=== PATIENT | male | born 1975 | race African-American/Black ===

== ENCOUNTER 2017-09-30 07:49 | Emergency (ER) | payer BC ==
[2017-09-30] MEDS ORDERED: NA CHLORIDE 0.9% 1,000 ML ONE (08:18)
[2017-09-30] MEDS ORDERED: ONDANSETRON 4 MG/2 ML VIAL ONE (08:18)
[2017-09-30] MEDS ORDERED: KETOROLAC 30 MG/ML INJ ONE (08:18)
[2017-09-30 08:40] LABS: Absolute Lymphocytes (CBC) 2.8 K/uL (0.7-4.9); Absolute Monocytes 0.6 K/uL (0.1-1.3); Absolute Neutrophil 3.3 K/uL (1.8-8.0); Basophils % 0.6 % (0-1.3); Eosinophils % 2.3 % (0-4.4); Hematocrit 42.7 % (39.6-49.0); Lymphocytes % 40.3 % (15.3-44.8); MCH 26.6 pg (27.0-35.0); MCV 78.6 fL (80-100); MPV 7.5 fL (7.6-11.3); Monocytes % 8.8 % (3.3-12.3); RBC Red Blood Cell Count 5.43 M/uL (4.33-5.43)
[2017-09-30 08:43] LABS: Protime INR 1.08
[2017-09-30 09:12] LABS: Albumin 3.4 g/dL (3.4-5.0); Bilirubin Direct 0.1 mg/dL (0-0.2); Bilirubin Total 0.4 mg/dL (0.2-1.0); Magnesium 1.9 mg/dL (1.8-2.4); Potassium 3.9 mmol/L (3.5-5.1); Protein, Total 8.2 g/dL (6.4-8.2)
--- NOTE | 2017-09-30 09:57 | RAD REPORT ---
EXAM DESCRIPTION: RAD - Chest Single View - 09/30/2017 8:51 am CLINICAL HISTORY: Left-sided chest pain COMPARISON: September 28 TECHNIQUE: AP portable chest image was obtained 0835 hours . FINDINGS: Lung volumes are slightly reduced compared to the prior study. No new lung parenchymal pro cess seen. Cardiomegaly is present without vascular engorgement. Lung markings are prominent. Trachea is midline. No measurable pleural effusion and no pneumothorax. No gross bony abnormality seen. No a cute aortic findings suspected. IMPRESSION: Cardiomegaly similar to comparison. No acute vascular engorgement. Lung base markings arm mildly prominent but unchanged. No new or progressive finding.
--- NOTE | 2017-09-30 10:06 | RAD REPORT ---
EXAM DESCRIPTION: CT - Chest For Pe Angio - 09/30/2017 9:55 am CLINICAL HISTORY: Left-sided chest pain, shortness of breath COMPARISON: Chest exam same date, CT chest September 2014 TECHNIQUE: Dynamically enhanced 3 mm thick images of the chest were obtained during administration o f approximately 150mL Isovue 370 IV contrast. Coronal and oblique reconstruction images were generate d and reviewed. Exam utilizes a protocol to evaluate the pulmonary arterial tree. All CT scans are performed using dose optimization technique as appropriate and may include automated exposure control or mA/KV adjustment according to patient size. FINDINGS: No pulmonary emboli are identified. The aorta as imaged shows no acute or suspicious finding. No pericardial thickening or effusion. No focal consolidation or mass. Interstitial markings in the lower lung hernandez are prominent. This co uld be edema or infiltrate. No pleural effusion or pleural thickening. No mediastinal or hilar suspicious masses. No chest wall masses or abnormal axillary lymphadenopathy. IMPRESSION: No pulmonary emboli identified. Suspected interstitial edema or infiltrate in both lower lung hernandez. No focal mass or consolidation.
[2017-09-30] MEDS ORDERED: AZITHROMYCIN 250 MG TAB ONE (10:51)
[2017-09-30] MEDS ORDERED: CEFTRIAXONE/SWI 1gm 1 GM/10 ML SYR ONE (10:51)
[2017-09-30 11:52] LABS: CKMB Creatine Kinase MB 4.3 ng/mL (0.3-3.6)
--- NOTE | 2017-09-30 11:58 | ER ---
Nurse's Notes [facility] Name: Trever Dewitt Age: 42 yrs Sex: Male : 1975 Arrival Date: 09/30/2017 Time: 07:53 Bed 7 Private MD: Vic Aguayo E Diagnosis: Chest pain on breathing;Chest pain, unspecified;Pleurisy;Rhabdomyolysis;Cardiomegaly;Pneumonia due to other specified bacteria Presentation: 09/30 08:04 Presenting complaint: Patient states: Left-sided chest pain, sharp, reproducible with jl7 palpation and deep breaths since yesterday. Transition of care: patient was not received from another setting of care. Onset of symptoms was September 29, 2017. Risk Assessment: Do you want to hurt yourself or someone else? Patient reports no desire to harm self or others. Initial Sepsis Screen: Does the patient meet any 2 criteria? No. Patient's initial sepsis screen is negative. Does the patient have a suspected source of infection? No. Patient's initial sepsis screen is negative. Care prior to arrival: None. 08:04 Method Of Arrival: Ambulatory jl7 08:04 Acuity: MATTHEW 3 jl7 Triage Assessment: 08:08 General: Appears in no apparent distress. uncomfortable, Behavior is calm, cooperative, jl7 appropriate for age. Pain: Complains of pain in left breast Pain does not radiate. Pain currently is 8 out of 10 on a pain scale. Quality of pain is described as sharp, Pain began 1 day ago. Is intermittent, Aggravated by Deep breath, cough, bending over. EENT: No signs and/or symptoms were reported regarding the EENT system. Neuro: Level of Consciousness is awake, alert, obeys commands, Oriented to person, place, time, situation. Cardiovascular: Patient's skin is warm and dry. Respiratory: Airway is patent Respiratory effort is even, unlabored, Respiratory pattern is regular, symmetrical. GI: No signs and/or symptoms were reported involving the gastrointestinal system. : No signs and/or symptoms were reported regarding the genitourinary system. Derm: Skin is dry, Skin is normal, Skin temperature is warm. Musculoskeletal: No signs and/or symptoms reported regarding the musculoskeletal system. Historical: - Allergies: 08:08 No Known Allergies; jl7 - Home Meds: 08:08 Crestor oral oral [Active]; jl7 - PMHx: 08:08 Hyperlipidemia; jl7 - PSHx: 08:08 None; jl7 - Immunization history:: Adult Immunizations up to date. - Social history:: Smoking status: Patient/guardian denies using tobacco. - Family history:: not pertinent. - Ebola Screening: : No symptoms or risks identified at this time. Screenin:15 Abuse screen: Denies threats or abuse. Denies injuries from another. Nutritional jl7 screening: No deficits noted. Tuberculosis screening: No symptoms or risk factors identified. Fall Risk IV access (20 points). Total Castañeda Fall Scale indicates No Risk (0-24 pts). Assessment: 08:15 General: Appears in no apparent distress. uncomfortable, Behavior is calm, cooperative, jl7 appropriate for age. Pain: Complains of pain in left breast Pain does not radiate. Pain currently is 8 out of 10 on a pain scale. Quality of pain is described as sharp, Pain began 1 day ago. Is intermittent. Neuro: Level of Consciousness is awake, alert, obeys commands, Oriented to person, place, time, situation. Cardiovascular: Heart tones S1 S2 present Patient's skin is warm and dry. Respiratory: Airway is patent Respiratory effort is even, unlabored, Respiratory pattern is regular, symmetrical, Breath sounds are clear bilaterally. GI: No signs and/or symptoms were reported involving the gastrointestinal system. : No signs and/or symptoms were reported regarding the genitourinary system. EENT: No signs and/or symptoms were reported regarding the EENT system. Derm: Skin is dry, Skin is normal, Skin temperature is warm. Musculoskeletal: No signs and/or symptoms reported regarding the musculoskeletal system. 09:39 Reassessment: Patient appears in no apparent distress at this time. No changes from la1 previously documented assessment. Patient and/or family updated on plan of care and expected duration. Pain level reassessed. Patient is alert, oriented x 3, equal unlabored respirations, skin warm/dry/pink. 11:08 Reassessment: Repeat cardiac enzymes drawn and sent to lab, pt notified of wait time aa5 for results, pt verbalized understanding, states no complaints at this time. . Vital Signs: 08:08 BP 139 / 72; Pulse 88; Resp 14 S; Temp 99.3(O); Pulse Ox 98% on R/A; Weight 108.86 kg jl7 (R); Height 5 ft. 11 in. (180.34 cm) (R); Pain 8/10; 09:40 BP 140 / 82; Pulse 75; Resp 15; Pulse Ox 100% on R/A; la1 12:27 BP 150 / 84; Pulse 86; Resp 16; Pulse Ox 98% on R/A; la1 08:08 Body Mass Index 33.47 (108.86 kg, 180.34 cm) jl7 ED Course: 07:53 Patient arrived in ED. mr 07:54 Vic Aguayo MD is Private Physician. mr 07:58 Maria Eugenia Cordon RN is Primary Nurse. jl7 08:01 Otf Branch MD is Attending Physician. katelyn 08:07 Triage completed. jl7 08:08 Arm band placed on. jl7 08:15 Patient has correct armband on for positive identification. Placed in gown. Bed in low jl7 position. Call light in reach. Side rails up X 1. monitor and storage bin tender on. Pulse ox on. NIBP on. 08:15 No provider procedures requiring assistance completed. jl7 08:20 Initial lab(s) drawn, by wy, sent to lab. Inserted saline lock: 20 gauge in right jl7 antecubital area, using aseptic technique. Blood collected. 08:38 EKG done, by instrument and control technician. reviewed by Otf Branch MD. at1 08:43 Report given to DAVINA Jasso. jl7 08:51 X-ray completed. Portable x-ray completed in exam room. Patient tolerated procedure sw well. 08:52 XRAY Chest (1 view) In Process Unspecified. EDMS 09:15 Notified ED physician of a critical lab result(s). CPK 3609. aa5 09:54 CT completed. Patient tolerated procedure well. Patient moved to CT via wheelchair. jg1 Patient moved back from CT. 09:55 CT Chest For PE Angio In Process Unspecified. EDMS 10:30 First set of blood cultures drawn. Inserted saline lock: 20 gauge in left antecubital iw area, using aseptic technique. Blood collected. 11:26 Romero Han, RN is Primary Nurse. la1 11:58 Vic Aguayo MD is Referral Physician. katelyn 11:58 Tommy James MD is Referral Physician. katelyn 12:24 IV discontinued, intact, bleeding controlled, No redness/swelling at site. Pressure la1 dressing applied. Administered Medications: 08:20 Drug: NS 0.9% 1000 ml Route: IV; Rate: 1 bolus; Site: right antecubital; jl7 09:39 Follow up: IV Status: Completed infusion la1 08:22 Drug: TORadol 30 mg Route: IVP; Site: right antecubital; jl7 08:42 Follow up: Response: No adverse reaction; Pain is unchanged, physician notified jl7 10:27 Not Given (Patient Refused): Zofran 4 mg IVP once; over 2 minutes la1 10:53 Drug: Rocephin - (cefTRIAXone) 1 grams Route: IVPB; Infused Over: 30 mins; Site: right la1 antecubital; 10:55 Follow up: IV Status: Completed infusion la1 10:53 Drug: Zithromax 500 mg Route: PO; la1 11:26 Follow up: Response: No adverse reaction la1 Outcome: 11:58 Discharge ordered by MD. zepeda 12:24 Discharged to home ambulatory. la1 12:24 Condition: stable 12:24 Discharge instructions given to patient, Instructed on discharge instructions, follow up and referral plans. medication usage, Demonstrated understanding of instructions, follow-up care, medications, Prescriptions given X 4. 12:26 Patient left the ED. la1 Signatures: Dispatcher [employer] EDMS Otf Branch MD MD cha Rivera, Maria mr Maxwell, Cassy jg1 Vanessa Brown, RN aKterina Saba RN RN gus5 Alexandra sutton, customer technical services manager EKG Tat1 Romero Han RN RN la1 Yi Wallace Jahala RN RN jl7
--- NOTE | 2017-09-30 11:58 | EDPHYS ---
Physician Documentation [facility] Name: Trever Dewitt Age: 42 yrs Sex: Male : 1975 Arrival Date: 09/30/2017 Time: 07:53 Bed 7 Private MD: Vic Aguayo E ED Physician Otf Branch HPI: 09/30 08:05 This 42 yrs old Black Male presents to ER via Unassigned with complaints of Flank Pain. katelyn 08:05 The patient complains of pain in the left mid back. katelyn Historical: - Allergies: 08:08 No Known Allergies; jl7 - Home Meds: 08:08 Crestor oral oral [Active]; jl7 - PMHx: 08:08 Hyperlipidemia; jl7 - PSHx: 08:08 None; jl7 - Immunization history:: Adult Immunizations up to date. - Social history:: Smoking status: Patient/guardian denies using tobacco. - Family history:: not pertinent. - Ebola Screening: : No symptoms or risks identified at this time. ROS: 08:06 Constitutional: Negative for fever, chills, and weight loss, Eyes: Negative for injury, katelyn pain, redness, and discharge, ENT: Negative for injury, pain, and discharge, Neck: Negative for injury, pain, and swelling, Cardiovascular: Negative for chest pain, palpitations, and edema, Abdomen/GI: Negative for abdominal pain, nausea, vomiting, diarrhea, and constipation, Back: Negative for injury and pain, : Negative for injury, bleeding, discharge, and swelling, MS/Extremity: Negative for injury and deformity, Skin: Negative for injury, rash, and discoloration, Neuro: Negative for headache, weakness, numbness, tingling, and seizure, Psych: Negative for depression, anxiety, suicide ideation, homicidal ideation, and hallucinations, Allergy/Immunology: Negative for hives, rash, and allergies, Endocrine: Negative for neck swelling, polydipsia, polyuria, polyphagia, and marked weight changes, Hematologic/Lymphatic: Negative for swollen nodes, abnormal bleeding, and unusual bruising. 08:06 Cardiovascular: Positive for pleuritic. 08:06 Respiratory: Positive for pleurisy, shortness of breath, at rest. Exam: 08:06 Constitutional: This is a well developed, well nourished patient who is awake, alert, katelyn and in no acute distress. Head/Face: Normocephalic, atraumatic. Eyes: Pupils equal round and reactive to light, extra-ocular motions intact. Lids and lashes normal. Conjunctiva and sclera are non-icteric and not injected. Cornea within normal limits. Periorbital areas with no swelling, redness, or edema. ENT: Nares patent. No nasal discharge, no septal abnormalities noted. Tympanic membranes are normal and external auditory canals are clear. Oropharynx with no redness, swelling, or masses, exudates, or evidence of obstruction, uvula midline. Mucous membranes moist. Neck: Trachea midline, no thyromegaly or masses palpated, and no cervical lymphadenopathy. Supple, full range of motion without nuchal rigidity, or vertebral point tenderness. No Meningismus. Cardiovascular: Regular rate and rhythm with a normal S1 and S2. No gallops, murmurs, or rubs. Normal PMI, no JVD. No pulse deficits. Respiratory: Lungs have equal breath sounds bilaterally, clear to auscultation and percussion. No rales, rhonchi or wheezes noted. No increased work of breathing, no retractions or nasal flaring. Abdomen/GI: Soft, non-tender, with normal bowel sounds. No distension or tympany. No guarding or rebound. No evidence of tenderness throughout. Back: No spinal tenderness. No costovertebral tenderness. Full range of motion. Male : Normal genitalia with no discharge or lesions. Skin: Warm, dry with normal turgor. Normal color with no rashes, no lesions, and no evidence of cellulitis. MS/ Extremity: Pulses equal, no cyanosis. Neurovascular intact. Full, normal range of motion. Neuro: Awake and alert, GCS 15, oriented to person, place, time, and situation. Cranial nerves II-XII grossly intact. Motor strength 5/5 in all extremities. Sensory grossly intact. Cerebellar exam normal. Normal gait. Psych: Awake, alert, with orientation to person, place and time. Behavior, mood, and affect are within normal limits. 08:06 Chest/axilla: Inspection: normal, Palpation: tenderness, that is mild, that is moderate, of the left breast. 08:07 Musculoskeletal/extremity: DVT Exam: No signs of deep vein thrombosis. no pain, no katelyn swelling, no tenderness, negative Homans' sign noted on exam, no appreciated bluish discoloration, no erythema, no increased warmth. Vital Signs: 08:08 BP 139 / 72; Pulse 88; Resp 14 S; Temp 99.3(O); Pulse Ox 98% on R/A; Weight 108.86 kg jl7 (R); Height 5 ft. 11 in. (180.34 cm) (R); Pain 8/10; 09:40 BP 140 / 82; Pulse 75; Resp 15; Pulse Ox 100% on R/A; la1 12:27 BP 150 / 84; Pulse 86; Resp 16; Pulse Ox 98% on R/A; la1 08:08 Body Mass Index 33.47 (108.86 kg, 180.34 cm) jl7 MDM: 08:01 Patient medically screened. [facility] 08:07 Data reviewed: vital signs, nurses notes, lab test result(s), EKG, radiologic studies, [facility] CT scan, plain films. 09/30 08:05 Order name: Basic Metabolic Panel; Complete Time: 09:19 [facility] 09/30 08:05 Order name: CBC with Diff; Complete Time: 09:04 [facility] 09/30 08:05 Order name: Ckmb; Complete Time: 09:19 [facility] 09/30 08:05 Order name: CPK; Complete Time: 09:19 [facility] 09/30 08:05 Order name: LFT's; Complete Time: 09:19 [facility] 09/30 08:05 Order name: Magnesium; Complete Time: 09:19 [facility] 09/30 08:05 Order name: NT PRO-BNP; Complete Time: 09:19 [facility] 09/30 08:05 Order name: PT-INR; Complete Time: 09:04 [facility] 09/30 08:05 Order name: Ptt, Activated; Complete Time: 09:04 [facility] 09/30 08:05 Order name: Troponin (emerg Dept Use Only); Complete Time: 09:04 [facility] 09/30 08:05 Order name: Lipase; Complete Time: 09:19 [facility] 09/30 10:22 Order name: Blood Culture Adult (2) 09/30 10:24 Order name: Ckmb; Complete Time: 12:15 [facility] 09/30 10:24 Order name: Creatine Phosphokinase; Complete Time: 12:15 [facility] 09/30 08:05 Order name: XRAY Chest (1 view); Complete Time: 10:20 [facility] 09/30 08:05 Order name: EKG; Complete Time: 08:06 [facility] 09/30 08:05 Order name: Cardiac monitoring; Complete Time: 08:37 [facility] 09/30 08:05 Order name: EKG - Nurse/Tech; Complete Time: 08:38 [facility] 09/30 08:05 Order name: IV Saline Lock; Complete Time: 08:38 [facility] 09/30 08:05 Order name: Labs collected and sent; Complete Time: 08:38 [facility] 09/30 08:05 Order name: O2 Per Protocol; Complete Time: 08:38 [facility] 09/30 08:05 Order name: CT Chest For PE Angio; Complete Time: 10:20 [facility] 09/30 10:22 Order name: Echo w/ Doppler [facility] 09/30 10:24 Order name: Troponin (emerg Dept Use Only); Complete Time: 11:57 [facility] 09/30 11:20 Order name: Urine Dipstick--Ancillary (enter results) 09/30 08:05 Order name: O2 Sat Monitoring; Complete Time: 08:38 [facility] 09/30 08:05 Order name: Urine Dipstick-Ancillary (obtain specimen); Complete Time: 11:26 [facility] 09/30 10:24 Order name: Repeat Cardiac Enzymes at: 11am; Complete Time: 11:10 [facility] Administered Medications: 08:20 Drug: NS 0.9% 1000 ml Route: IV; Rate: 1 bolus; Site: right antecubital; jl7 09:39 Follow up: IV Status: Completed infusion la1 08:22 Drug: TORadol 30 mg Route: IVP; Site: right antecubital; jl7 08:42 Follow up: Response: No adverse reaction; Pain is unchanged, physician notified jl7 10:27 Not Given (Patient Refused): Zofran 4 mg IVP once; over 2 minutes la1 10:53 Drug: Rocephin - (cefTRIAXone) 1 grams Route: IVPB; Infused Over: 30 mins; Site: right la1 antecubital; 10:55 Follow up: IV Status: Completed infusion la1 10:53 Drug: Zithromax 500 mg Route: PO; la1 11:26 Follow up: Response: No adverse reaction la1 Disposition: 09/30/17 11:58 Discharged to Home. Impression: Chest pain on breathing, Chest pain, unspecified, Pleurisy, Rhabdomyolysis, Cardiomegaly, Pneumonia due to other specified bacteria. - Condition is Stable. - Discharge Instructions: Nonspecific Chest Pain, Chest Wall Pain, Pleurisy, Community-Acquired Pneumonia, Adult, Rhabdomyolysis, Chest Wall Pain, [id number], Nonspecific Chest Pain, [id number]-[id number]. - Prescriptions for Ibuprofen 600 mg Oral Tablet - take 1 tablet by ORAL route every 6 hours As needed take with food; 20 tablet. Pepcid 20 mg Oral Tablet - take 1 tablet by ORAL route every 12 hours for 10 days; 20 tablet. Tylenol- Codeine #3 300-30 mg Oral Tablet - take 2 tablet by ORAL route every 6 hours As needed; 30 tablet. Zithromax 500 mg Oral Tablet - take 1 tablet by ORAL route once daily for 4 days; 4 tablet. - Medication Reconciliation Form, Thank You Letter, Antibiotic Education, Prescription Opioid Use form. - Follow up: Vic Aguayo; When: 2 - 3 days; Reason: Recheck today's complaints, Continuance of care, Re-evaluation by your physician. Follow up: Tommy James; When: 2 - 3 days; Reason: Recheck today's complaints, Continuance of care, Re-evaluation by your physician. - Problem is new. - Symptoms have improved. Signatures: Dispatcher [employer] EDMS Otf Branch MD MD cha Attema, Lee RN RN la1 Maria Eugenia Cordon RN RN jl7 Corrections: (The following items were deleted from the chart) 12:26 11:58 09/30/2017 11:58 Discharged to Home. Impression: Chest pain on breathing; Chest la1 pain, unspecified; Pleurisy; Rhabdomyolysis; Cardiomegaly; Pneumonia due to other specified bacteria. Condition is Stable. Discharge Instructions: Nonspecific Chest Pain, Chest Wall Pain, Chest Wall Pain, [id number], Nonspecific Chest Pain, [id number], Pleurisy, Rhabdomyolysis, Community-Acquired Pneumonia, Adult. Prescriptions for Ibuprofen 600 mg Oral Tablet - take 1 tablet by ORAL route every 6 hours As needed take with food; 20 tablet, Pepcid 20 mg Oral Tablet - take 1 tablet by ORAL route every 12 hours for 10 days; 20 tablet, Tylenol-Codeine #3 300-30 mg Oral Tablet - take 2 tablet by ORAL route every 6 hours As needed; 30 tablet, Zithromax 500 mg Oral Tablet - take 1 tablet by ORAL route once daily for 4 days; 4 tablet. and Forms are Medication Reconciliation Form, Thank You Letter, Antibiotic Education, Prescription Opioid Use. Follow up: Vic Aguayo; When: 2 - 3 days; Reason: Recheck today's complaints, Continuance of care, Re-evaluation by your physician. Follow up: Tommy James; When: 2 - 3 days; Reason: Recheck today's complaints, Continuance of care, Re-evaluation by your physician. Problem is new. Symptoms have improved. katelyn
[2017-09-30 12:32] VITALS: TEMP 99.3
[2017-09-30 12:34] VITALS: BP 140/82; O2SAT 100
[2017-09-30 12:34] LABS: Urine Blood 2+ (NEG); Urine Glucose NEGATIVE (NEG); Urine Protein 2+ (NEG); Urine pH 5.5 (5.0-7.0)
--- NOTE | 2017-09-30 12:40 | EKG ---
Test Date: 2017-09-30 Test Time: 08:25:41 Computer Assistant: ARISTIDES MEASUREMENT RESULTS: Intervals: Rate: 74 ND: 158 QRSD: 88 QT: 378 QTc: 419 [place]: P: 57 ND: 158 QRS: 35 T: 26 INTERPRETIVE STATEMENTS: Normal sinus rhythm Normal ECG Compared to ECG 09/30/2014 06:55:18 Sinus bradycardia no longer present T-wave abnormality no longer present Possible ischemia no longer present Electronically Signed On 09-30-17 12:39:44 CDT by Branden Mac
--- NOTE | 2017-09-30 17:48 | ECHO ---
HEIGHT: 5 ft 11 in WEIGHT: 240 lb 0 oz DATE OF STUDY: 09/30/[address]: 2-DIMENSIONAL: YES M.MODE: YES DOPPLER: YES COLOR FLOW: YES TDS: NO PORTABLE: NO DEFINITY: NO BUBBLE STUDY: NO DIAGNOSIS: PNEUMONIA CARDIAC HISTORY: CATHERIZATION: NO SURGERY: NO PROSTHETIC VALVE: NO PACEMAKER: NO MEASUREMENTS (cm) DIASTOLIC (NORMALS) SYSTOLIC (NORMALS) IVSd 1.5 (0.6-1.2) LA Diam 4.1 (1.9-4.0) LVEF 73% LVIDd 5.2 (3.5-5.7) LVIDs 3.0 (2.0-3.5) %FS 42% LVPWd 1.5 (0.6-1.2) Ao Diam 3.3 (2.0-3.7) 2 DIMENSIONAL ASSESSMENT: RIGHT ATRIUM: NORMAL LEFT ATRIUM: DILATED RIGHT VENTRICLE: NORMAL LEFT VENTRICLE: LEFT VENTRICULAR HYPERTROPHY CONCENTRIC TRICUSPID VALVE: NORMAL MITRAL VALVE: NORMAL PULMONIC VALVE: NORMAL AORTIC VALVE: NORMAL PERICARDIAL EFFUSION: NONE AORTIC ROOT: NORMAL LEFT VENTRICULAR WALL MOTION: HYPERDYNAMIC DOPPLER/COLOR FLOW: TRACE TRICUSPID REGURGITATION AND MITRAL REGURGITATION. MODERATE PULMONARY HYPERTENSION. ESTIMATED RIGHT VENTRICULAR SYSTOLIC PRESSURE 50 MMHG. COMMENTS: HYPERDYNAMIC LEFT VENTRICLE EJECTION FRACTION, LEFT VENTRICULAR HYPERTROPHY. DILATED LEFT ATRIUM. TRACE TRICUSPID REGURGITATION AND MITRAL REGURGITATION. MODERATE PULMONARY HYPERTENSION. TECHNOLOGIST: BRITNI DEWITT [facility]
== END 2017-09-30 12:26 | disposition home or self-care (01) ==
LOC: ER 07:49
DX: J15.8 Pneumonia due to other specified bacteria (principal); I51.7 Cardiomegaly; M62.82 Rhabdomyolysis; R09.1 Pleurisy; E78.5 Hyperlipidemia, unspecified
CPT/HCPCS: 36415; 71045; 71275; 80048; 80076; 81003; 82550; 82553; 83690; 83735; 83880; 84484; 85025; 85610; 85730; 87040; 93005; 93306; 96361; 96374; 96375; 99285; J0696; J2405; J7030; Q9967

== ENCOUNTER 2019-03-02 18:29 | Emergency (ER) | payer BC ==
--- OUTSIDE RECORDS SUMMARY | 2019-03-02 18:31 | XMS REPORT ---
:1975 [facility] Address [address] [place] [address] Dr. Flores [address] [place] [id number] Care Team Providers Name Role Phone Unavailable Unavailable Unavailable Problems This patient has no known problems. Allergies, Adverse Reactions, Alerts This patient has no known allergies or adverse reactions. Medications This patient has no known medications.
[2019-03-02 19:44] LABS: Absolute Lymphocytes (CBC) 3.4 K/uL (0.7-4.9); Basophils % 0.8 % (0-1.3); Hematocrit 45.1 % (39.6-49.0); Lymphocytes % 36.4 % (15.3-44.8); MPV 7.4 fL (7.6-11.3); RBC Red Blood Cell Count 5.59 M/uL (4.33-5.43)
[2019-03-02 20:02] LABS: Albumin 3.2 g/dL (3.4-5.0); Bilirubin Total 0.3 mg/dL (0.2-1.0); Potassium 4.1 mmol/L (3.5-5.1); Protein, Total 7.9 g/dL (6.4-8.2)
--- NOTE | 2019-03-02 20:08 | RAD REPORT ---
EXAM DESCRIPTION: US - Scrotum Testicles - 03/02/2019 7:59 pm CLINICAL HISTORY: Scrotal pain, history of vasectomy 10 days earlier COMPARISON: None. FINDINGS: No intratesticular mass lesions are present. Punctate calcifications are present. Doppler evaluation shows normal blood flow within the bilateral testicular tissue. A small 6 mm right epididymal cyst is identified. No right-sided hydrocele or extratesticular abnorma lity. A large left-sided hydrocele is present. Echogenic debris is scattered throughout this fluid most lik willi hemorrhagic material. IMPRESSION: Moderately large left-sided hydrocele containing echogenic material most likely old bloo d products. No torsion or intratesticular abnormalities.
--- NOTE | 2019-03-02 20:30 | ER ---
Nurse's Notes [facility] Name: Trever Dewitt Age: 43 yrs Sex: Male : 1975 Arrival Date: 03/02/2019 Time: 18:33 Bed 28 Private MD: Diagnosis: Hydrocele and spermatocele Presentation: 03/02 18:41 Presenting complaint: Patient states: i had vasectomy last feb [address] Slaughter 2 mg2 days after the surgery, my left testicle is swollen. Transition of care: patient was not received from another setting of care. Onset of symptoms was February 18, 2019. Risk Assessment: Do you want to hurt yourself or someone else? Patient reports no desire to harm self or others. Initial Sepsis Screen: Does the patient meet any 2 criteria? No. Patient's initial sepsis screen is negative. Does the patient have a suspected source of infection? No. Patient's initial sepsis screen is negative. Care prior to arrival: None. 18:41 Method Of Arrival: Ambulatory mg2 18:41 Acuity: MATTHEW 3 mg2 Historical: - Allergies: 18:54 No Known Allergies; mg2 - Home Meds: 18:54 Crestor Oral [Active]; mg2 - PMHx: 18:54 Hyperlipidemia; mg2 - PSHx: 18:54 Vasectomy; mg2 - Immunization history:: Flu vaccine is not up to date. - Social history:: Smoking status: Patient/guardian denies using tobacco, Patient uses alcohol, occasionally. Patient/guardian denies using street drugs, IV drugs, Patient/guardian denies using The patient lives with family. - Ebola Screening: : No symptoms or risks identified at this time. - Family history:: not pertinent. Screenin:20 Abuse screen: Denies threats or abuse. Denies injuries from another. Nutritional ca1 screening: No deficits noted. Tuberculosis screening: No symptoms or risk factors identified. Fall Risk IV access (20 points). Assessment: 19:15 General: Appears in no apparent distress. Behavior is calm, cooperative, appropriate fu for age, Denies fever, feeling ill, fatigue, chills. Pain: Complains of pain in left groin area Pain does not radiate. Pain currently is 6 out of 10 on a pain scale. Quality of pain is described as piercing, Pain began Feb 17, 2019 Aggravated by sitting. Neuro: Level of Consciousness is awake, alert, obeys commands, Oriented to person, place, time, situation, Oil Expert are equal bilaterally Moves all extremities. Cardiovascular: Denies chest pain, Heart tones S1 S2 Capillary refill < 3 seconds. Respiratory: Airway is patent Breath sounds are clear bilaterally. GI: Abdomen is round Bowel sounds present X 4 quads. : Reports left testicular swelling. EENT: No signs and/or symptoms were reported regarding the EENT system. Derm: No signs and/or symptoms reported regarding the dermatologic system. Musculoskeletal: No signs and/or symptoms reported regarding the musculoskeletal system. 20:54 Reassessment: Patient appears in no apparent distress at this time. Patient and/or ca1 family updated on plan of care and expected duration. Pain level reassessed. Vital Signs: 18:43 Pulse 88; Resp 18; Temp 98.8; Pulse Ox 100% on R/A; Weight 115.67 kg; Height 5 ft. 11 mg2 in. (180.34 cm); Pain 5/10; 18:54 BP 161 / 95; mg2 19:33 BP 138 / 80; Pulse 82; Resp 18; Pulse Ox 99% on R/A; Pain 5/10; fu 20:30 BP 163 / 94; Pulse 82; Resp 17; Pulse Ox 100% on R/A; ca1 18:43 Body Mass Index 35.56 (115.67 kg, 180.34 cm) mg2 ED Course: 18:33 Patient arrived in ED. mr 18:43 Triage completed. mg2 18:44 Arm band placed on. mg2 19:01 Srikanth Givens, DAVINA is Primary Nurse. fu 19:13 Silvestre Evans MD is Attending Physician. ma2 19:20 Patient has correct armband on for positive identification. Bed in low position. Call ca1 light in reach. Side rails up X 1. Pulse ox on. NIBP on. Warm blanket given. 19:37 Inserted saline lock: 22 gauge in left antecubital area, using aseptic technique. Blood fu collected. 19:40 Initial lab(s) drawn, by me, sent to lab. fu 19:59 Scrotum Testicles US In Process Unspecified. EDMS 20:56 No provider procedures requiring assistance completed. IV discontinued, intact, ca1 bleeding controlled, No redness/swelling at site. Pressure dressing applied. Administered Medications: No medications were administered Outcome: 20:29 Discharge ordered by . monroe 20:56 Discharged to home ambulatory, with significant other. ca1 20:56 Condition: stable 20:56 Discharge instructions given to patient, Instructed on discharge instructions, follow up and referral plans. no drinking with medication, no driving heavy equipment, medication usage, Demonstrated understanding of instructions, follow-up care, medications, Prescriptions given X 1. 20:56 Patient left the ED. ca1 Signatures: Dispatcher [employer] Ella Vogel mr Srikanth Givens, RN Silvestre Blanchard MD MD ma2 Gardose, Michele, RN RN mg2 Malaika Longo RN RN ca1
--- NOTE | 2019-03-02 20:30 | EDPHYS ---
Physician Documentation [facility] Name: Trever Dewitt Age: 43 yrs Sex: Male : 1975 Arrival Date: 03/02/2019 Time: 18:33 Bed 28 Private MD: ED Physician Silvestre Evans HPI: 03/02 20:25 This 43 yrs old Black Male presents to ER via Ambulatory with complaints of Testicular ma2 Swelling. 20:25 The patient presents with swelling. Onset: The symptoms/episode began/occurred ma2 gradually, 1 day(s) ago. Associated signs and symptoms: Pertinent negatives: constipation, fever, nausea. Severity of symptoms: At their worst the symptoms were moderate, in the emergency department the symptoms are unchanged. The patient has not experienced similar symptoms in the past. s/p vasectomy. Historical: - Allergies: 18:54 No Known Allergies; mg2 - Home Meds: 18:54 Crestor Oral [Active]; mg2 - PMHx: 18:54 Hyperlipidemia; mg2 - PSHx: 18:54 Vasectomy; mg2 - Immunization history:: Flu vaccine is not up to date. - Social history:: Smoking status: Patient/guardian denies using tobacco, Patient uses alcohol, occasionally. Patient/guardian denies using street drugs, IV drugs, Patient/guardian denies using The patient lives with family. - Ebola Screening: : No symptoms or risks identified at this time. - Family history:: not pertinent. ROS: 20:25 Constitutional: Negative for fever, chills, and weight loss. ma2 20:25 All other systems are negative. Exam: 20:25 Constitutional: This is a well developed, well nourished patient who is awake, alert, ma2 and in no acute distress. Chest/axilla: Normal chest wall appearance and motion. Nontender with no deformity. No lesions are appreciated. Cardiovascular: Regular rate and rhythm with a normal S1 and S2. No gallops, murmurs, or rubs. Normal PMI, no JVD. No pulse deficits. Respiratory: Lungs have equal breath sounds bilaterally, clear to auscultation and percussion. No rales, rhonchi or wheezes noted. No increased work of breathing, no retractions or nasal flaring. Abdomen/GI: Soft, non-tender, with normal bowel sounds. No distension or tympany. No guarding or rebound. No evidence of tenderness throughout. Male : left testicle wih firm swelling, non tender, scrotal skin is wnl, no redness, inguinal area is bening with no redness or ttp, Normal right testicle, normal penus with no discharge or lesions. Skin: Warm, dry with normal turgor. Normal color with no rashes, no lesions, and no evidence of cellulitis. Neuro: Awake and alert, GCS 15, oriented to person, place, time, and situation. Cranial nerves II-XII grossly intact. Motor strength 5/5 in all extremities. Sensory grossly intact. Cerebellar exam normal. Normal gait. Vital Signs: 18:43 Pulse 88; Resp 18; Temp 98.8; Pulse Ox 100% on R/A; Weight 115.67 kg; Height 5 ft. 11 mg2 in. (180.34 cm); Pain 5/10; 18:54 BP 161 / 95; mg2 19:33 BP 138 / 80; Pulse 82; Resp 18; Pulse Ox 99% on R/A; Pain 5/10; fu 20:30 BP 163 / 94; Pulse 82; Resp 17; Pulse Ox 100% on R/A; ca1 18:43 Body Mass Index 35.56 (115.67 kg, 180.34 cm) mg2 MDM: 19:13 Patient medically screened. ma2 20:25 Differential diagnosis: nonspecific abdominal pain, testicular hydrocele, vs clott in ma2 veins vs other DD. us showing hydrocele, clinically not infected, discussed with dr. looney who advised f/u in the next week. Data reviewed: vital signs, nurses notes. Counseling: I had a detailed discussion with the patient and/or guardian regarding: the historical points, exam findings, and any diagnostic results supporting the discharge/admit diagnosis, the presence of at least one elevated blood pressure reading (>120/80) during this emergency department visit, the need for outpatient follow up. 03/02 19:15 Order name: CMP; Complete Time: 20:17 ma2 03/02 19:15 Order name: CBC with Diff; Complete Time: 20:17 ma2 03/02 19:15 Order name: Scrotum Testicles US; Complete Time: 20:17 ma2 Administered Medications: No medications were administered Disposition: 01/13/20 20:29 Discharged to Home. Impression: Hydrocele and spermatocele. - Condition is Stable. - Discharge Instructions: Hydrocele, Adult. - Prescriptions for Tylenol- Codeine #3 300-30 mg Oral Tablet - take 2 tablet by ORAL route every 6 hours As needed; 30 tablet. - Medication Reconciliation Form, Thank You Letter, Antibiotic Education, Prescription Opioid Use form. - Follow up: Private Physician; When: Tomorrow; Reason: Continuance of care. Signatures: Dispatcher [employer] EDMS Silvestre Evans MD MD ma2 Stephen Ayala, RN RN mg2 Malaika Longo RN RN ca1 Corrections: (The following items were deleted from the chart) 20:56 20:29 03/02/2019 20:29 Discharged to Home. Impression: Hydrocele and spermatocele. ca1 Condition is Stable. Forms are Medication Reconciliation Form, Thank You Letter, Antibiotic Education, Prescription Opioid Use. Follow up: Private Physician; When: Tomorrow; Reason: Continuance of care. ma2
[2019-03-02 22:14] VITALS: TEMP 98.8
[2019-03-02 22:17] VITALS: BP 163/94; O2SAT 100
== END 2019-03-02 20:56 | disposition home or self-care (01) ==
LOC: ER 18:29
DX: N43.3 Hydrocele, unspecified (principal); N43.42 Spermatocele of epididymis, multiple; E78.5 Hyperlipidemia, unspecified
CPT/HCPCS: 36415; 76870; 80053; 85025; 99284